=== PATIENT | male | born 1975 | race Caucasian/White ===

== ENCOUNTER 2022-04-02 11:58 | Emergency (ER) | payer BC, OTHER ==
[2022-04-02] MEDS ORDERED: Sodium Chloride 0.9% 1,000 ML IV ONE (12:38)
[2022-04-02] MEDS ORDERED: methylPREDNISolone Sodium Succinate 125 MG/2 ML SDV IVPUSH ONE (13:15)
[2022-04-02 13:18] LABS: ANION GAP 5.5 meq/L (7-15); CHLORIDE,CL 104 mmol/L (98-107); SODIUM,NA 139 mmol/L (136-145)
[2022-04-02 13:28] LABS: ESTIMATED GFR 98 mL/min (>=60)
[2022-04-02] MEDS ORDERED: Albuterol/Ipratropium 3.0-0.5 MG/3 ML Neb Soln NEB ONE (13:36)
[2022-04-02 14:52] VITALS: BP 118/64
== END 2022-04-02 14:45 | disposition home or self-care (01) ==
LOC: LL.ED 11:58
DX: T63.441A Toxic effect of venom of bees, accidental (unintentional), initial encounter (principal); J45.21 Mild intermittent asthma with (acute) exacerbation; R10.32 Left lower quadrant pain; I10 Essential (primary) hypertension; F17.210 Nicotine dependence, cigarettes, uncomplicated; Z91.018 Allergy to other foods; Z91.09 Other allergy status, other than to drugs and biological substances; Z91.048 Other nonmedicinal substance allergy status; Z87.19 Personal history of other diseases of the digestive system
CPT/HCPCS: 36415; 74019; 80053; 81001; 83605; 83735; 85025; 96361; 96374; 99284; 99284-25; J2930; J7030; J7620-GY